=== PATIENT | female | born 1990 | race Caucasian/White ===

== ENCOUNTER 2018-08-23 22:31 | Emergency (ER) | payer SELFPAY ==
[~2018-08-23] VITALS: Ht 165.1 cm; Wt 68.0 kg
[2018-08-23 22:37] VITALS: BP 125/87
--- NOTE | 2018-08-23 22:37 | NUR ---
TO BED # 08 AMBULATORY, REPORT GIVEN TO ZACHARY TSE
[2018-08-23] MEDS ORDERED: METOCLOPRAMIDE 10 MG/2 ML INJ VIAL IVP ONE (22:45)
[2018-08-23] MEDS ORDERED: NACL 0.9% 1,000 ML IV ONE (22:45)
--- NOTE | 2018-08-23 23:00 | NUR ---
28/F PRESENTS TO ED WITH FAMILY, C/O N/V X10 FOR 2 DAYS, REPORTS UNABLE TO EAT TODAY. PT IS 8 WEEKS , A0. REPORTS 9/10 DIFFUSE ABD PAIN. AOX4, RR EVEN AND UNLABORED. LUNG SOUNDS CLEAR BL. BS ACTIVE X4, ABD SOFT ROUND MILDLY TENDER TO TOUCH. HX L NEPHRECTOMY
[2018-08-23 23:04] LABS: EOSINOPHILS # (AUTO) 0.2 K/uL (0-0.4); HEMATOCRIT 40.5 % (36-48); HEMOGLOBIN 13.4 g/dL (12.0-16.0); LYMPHOCYTES # (AUTO) 2.2 K/uL (2.5-16.5); LYMPHOCYTES % (AUTO) 23.2 % (20.5-51.1); MEAN CORPUSCULAR HEMOGLOBIN 27 pg (27-31); MEAN CORPUSCULAR HGB CONC 33 g/dL (33-37); MEAN CORPUSCULAR VOLUME 82.5 fL (80-94); MONOCYTES % (AUTO) 10.1 % (1.7-9.3); NEUTROPHILS # (AUTO) 6.3 K/uL (1.8-7.7); NEUTROPHILS % (AUTO) 64.7 % (42.2-75.2); PLATELET COUNT (AUTO) 171 K/uL (140-450); RED BLOOD CELL COUNT(AUTO) 4.91 MIL/uL (4.20-5.40); RED CELL DISTRIBUTION WIDTH 14.5 % (11.6-13.7); WHITE BLOOD COUNT (AUTO) 9.7 K/uL (4.8-10.8)
[2018-08-23 23:05] LABS: APPEARANCE,URINE CLEAR (CLEAR); BILIRUBIN,URINE NEGATIVE (NEGATIVE); BLOOD, URINE NEGATIVE (NEGATIVE); COLOR,URINE YELLOW (YELLOW); LEUKOCYTE ESTERASE ,URINE NEGATIVE (NEGATIVE); NITRITE, URINE NEGATIVE (NEGATIVE); PH,URINE 6.5 (5.0-9.0); UGLUCOSE NEGATIVE (NEGATIVE)
[2018-08-23 23:14] LABS: ANION GAP 15.9 (8-16); CARBON DIOXIDE 24.8 mmol/L (21-32); POTASSIUM 3.7 mmol/L (3.5-5.1)
[2018-08-23 23:20] LABS: ALBUMIN 3.6 g/dL (3.4-5.0); TOTAL BILIRUBIN 0.2 mg/dL (0.0-1.0)
--- NOTE | 2018-08-23 23:50 | NUR ---
Patient discharged with v/s stable. Written and verbal after care instructions given and explained. Patient alert, oriented and verbalized understanding of instructions. Ambulatory with steady gait. All questions addressed prior to discharge. ID band removed. Patient advised to follow up with PMD. Rx of REGLAN given. Patient educated on indication of medication including possible reaction and side effects. Opportunity to ask questions provided and answered.
[2018-08-23 23:51] VITALS: BP 125/87
== END 2018-08-23 23:51 | disposition home or self-care (01) ==
LOC: MED 22:31
DX: O21.9 Vomiting of pregnancy, unspecified (principal); Z3A.08 8 weeks gestation of pregnancy
CPT/HCPCS: 36415; 80053; 81003; 81025; 84702; 85025; 96361; 96374; 99283; J2765

== ENCOUNTER 2018-09-09 14:43 | Emergency (ER) | payer SELFPAY ==
[~2018-09-09] VITALS: Ht 154.9 cm; Wt 63.1 kg
[2018-09-09 15:01] VITALS: BP 116/73
--- NOTE | 2018-09-09 15:11 | NUR ---
WAIT IN LOBBY.VSS
--- NOTE | 2018-09-09 15:40 | NUR ---
PATIENT AMBULATED TO BED 10
--- NOTE | 2018-09-09 15:45 | NUR ---
28Y/F BIB SELF WITH C/O N/V/D X 5 DAYS, LEFT LOWER ABDOMINAL PAIN, PAINFUL URINATION X 3 DAYS.PT IS AAOX4, VSS, BED DOWN, LOW LOCKED, BEDRAIL UP X 1, ER AWARE AND NOTIFIED OF PT STATUS. 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
--- NOTE | 2018-09-09 16:02 | NUR ---
Patient being evaluated by physician at bedside.
[2018-09-09] MEDS ORDERED: NACL 0.9% 1,000 ML IV ONE ×2 (16:05→17:35)
[2018-09-09] MEDS ORDERED: ONDANSETRON 4 MG/2 ML VIAL IVP ONE (17:35)
[2018-09-09 18:32] LABS: ANION GAP 14.8 (8-16); CREATININE 0.8 mg/dL (0.6-1.3); POTASSIUM 3.8 mmol/L (3.5-5.1)
[2018-09-09 18:38] LABS: ALBUMIN 3.2 g/dL (3.4-5.0); TOTAL BILIRUBIN 0.3 mg/dL (0.0-1.0)
[2018-09-09 18:41] LABS: BASOPHILS % (AUTO) 0.3 % (0.0-2.0); EOSINOPHILS # (AUTO) 0.1 K/uL (0-0.4); EOSINOPHILS % (AUTO) 1.1 % (0.0-4.0); HEMOGLOBIN 13.5 g/dL (12.0-16.0); LYMPHOCYTES % (AUTO) 19.5 % (20.5-51.1); MEAN CORPUSCULAR HEMOGLOBIN 27 pg (27-31); MEAN CORPUSCULAR HGB CONC 33 g/dL (33-37); MONOCYTES # (AUTO) 0.7 K/uL (0.8-1.0); MONOCYTES % (AUTO) 7.2 % (1.7-9.3); NEUTROPHILS # (AUTO) 7.3 K/uL (1.8-7.7); NEUTROPHILS % (AUTO) 71.9 % (42.2-75.2); PLATELET COUNT (AUTO) 141 K/uL (140-450); RED BLOOD CELL COUNT(AUTO) 4.93 MIL/uL (4.20-5.40); WHITE BLOOD COUNT (AUTO) 10.1 K/uL (4.8-10.8)
[2018-09-09 19:06] VITALS: BP 112/69
--- NOTE | 2018-09-09 19:06 | NUR ---
Patient discharged with v/s stable. Written and verbal after care instructions given and explained. Patient alert, oriented and verbalized understanding of instructions. Ambulatory with steady gait. All questions addressed prior to discharge. ID band removed. Patient advised to follow up with PMD. Rx of DICLEGIS given. Patient educated on indication of medication including possible reaction and side effects. Opportunity to ask questions provided and answered.
== END 2018-09-09 19:06 | disposition home or self-care (01) ==
LOC: MED 14:43
DX: O26.891 Other specified pregnancy related conditions, first trimester (principal); O21.8 Other vomiting complicating pregnancy; E86.0 Dehydration; R19.7 Diarrhea, unspecified; Z3A.11 11 weeks gestation of pregnancy
CPT/HCPCS: 36415; 80053; 81002; 81025; 85025; 96361; 96374; 99283; J2405; J7030

== ENCOUNTER 2018-09-19 13:42 | Emergency (ER) | payer SELFPAY ==
[~2018-09-19] VITALS: Ht 152.4 cm; Wt 61.7 kg
[2018-09-19 14:00] VITALS: BP 107/73
--- NOTE | 2018-09-19 14:03 | NUR ---
URINE CUP HANDED TO PT FOR SAMPLE
--- NOTE | 2018-09-19 14:33 | NUR ---
PT BIB C/O VOMITNG X3 DAYS. PT STATES THAT SHE VOMITS EVERYTHING SHE EATS, 10 EPISODES OF EMESIS LAST 3 DAYS. REPORTS LUQ ABD PAIN ONLY WHEN VOMITING. DENIES VAGINAL BLEEDING, UTI SYMPTOMS, FEVER OR DIARRHEA. LAST BM 09/19/18. VSS. ER TO SEE PT. HX--DENIES RX-- LMP JUN 24, 2018
[2018-09-19] MEDS ORDERED: NACL 0.9% 1,000 ML IV ONE ×2 (14:38→16:30)
[2018-09-19] MEDS ORDERED: ONDANSETRON 4 MG/2 ML VIAL IVP ONE (14:40)
[2018-09-19 15:08] LABS: BASOPHILS % (AUTO) 0.2 % (0.0-2.0); EOSINOPHILS # (AUTO) 0.1 K/uL (0-0.4); EOSINOPHILS % (AUTO) 1.1 % (0.0-4.0); HEMATOCRIT 39.3 % (36-48); HEMOGLOBIN 13.2 g/dL (12.0-16.0); LYMPHOCYTES # (AUTO) 1.4 K/uL (2.5-16.5); LYMPHOCYTES % (AUTO) 16.7 % (20.5-51.1); MEAN CORPUSCULAR HEMOGLOBIN 28 pg (27-31); MEAN CORPUSCULAR HGB CONC 34 g/dL (33-37); MEAN CORPUSCULAR VOLUME 82.6 fL (80-94); MONOCYTES # (AUTO) 0.7 K/uL (0.8-1.0); MONOCYTES % (AUTO) 8.4 % (1.7-9.3); NEUTROPHILS # (AUTO) 6.3 K/uL (1.8-7.7); NEUTROPHILS % (AUTO) 73.6 % (42.2-75.2); PLATELET COUNT (AUTO) 152 K/uL (140-450); RED BLOOD CELL COUNT(AUTO) 4.75 MIL/uL (4.20-5.40); RED CELL DISTRIBUTION WIDTH 14.2 % (11.6-13.7); WHITE BLOOD COUNT (AUTO) 8.6 K/uL (4.8-10.8)
[2018-09-19 15:13] LABS: APPEARANCE,URINE SL CLOUDY (CLEAR); BILIRUBIN,URINE 1+ (NEGATIVE); BLOOD, URINE NEGATIVE (NEGATIVE); COLOR,URINE YELLOW (YELLOW); LEUKOCYTE ESTERASE ,URINE 1+ (NEGATIVE); NITRITE, URINE NEGATIVE (NEGATIVE); UGLUCOSE NEGATIVE (NEGATIVE)
[2018-09-19 15:34] LABS: ANION GAP 15.5 (8-16); CREATININE 0.9 mg/dL (0.6-1.3); POTASSIUM 3.5 mmol/L (3.5-5.1)
[2018-09-19 15:40] LABS: ALBUMIN 3.4 g/dL (3.4-5.0); TOTAL BILIRUBIN 0.3 mg/dL (0.0-1.0)
--- NOTE | 2018-09-19 15:59 | NUR ---
UNABLE TO HEAR HEART TONES, ANNA ROSAS MADE AWARE
--- NOTE | 2018-09-19 16:52 | NUR ---
PT RECIEVING 2ND BOLUS, PT TOLERATING WELL, LUNGS CLEAR, NO EDEMA, IV SITE HAS NO REDNESS. PT DENIES PAIN OR NAUSEA AT THIS TIME.
[2018-09-19 17:27] VITALS: BP 116/67
--- NOTE | 2018-09-22 10:22 | NUR ---
Late entry. Confirmed with RN that 0.9 NS 1000ml IV bolus completed at 1600.
== END 2018-09-19 17:27 | disposition home or self-care (01) ==
LOC: MED 13:42
DX: O21.0 Mild hyperemesis gravidarum (principal); Z3A.11 11 weeks gestation of pregnancy
CPT/HCPCS: 36415; 80053; 81002; 81025; 83690; 85025; 87086; 96361; 96374; 99283; J2405; J7030

== ENCOUNTER 2018-10-02 15:32 | Emergency (ER) | payer SELFPAY ==
[~2018-10-02] VITALS: Ht 154.9 cm; Wt 61.3 kg
[2018-10-02 15:44] VITALS: BP 108/68
--- NOTE | 2018-10-02 15:45 | NUR ---
PT AMB TO BED12
--- NOTE | 2018-10-02 15:46 | NUR ---
BIB BROTHER C/O N/V X YESTERDAY , RIGHT LOWER BACK THROBBING PAIN X TODAY. 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 SKIN IS PINK/WARM/DRY; AAOX4 WITH EVEN AND STEADY GAIT; PT DENIES ANY FEVER, CP, SOB, OR COUGH AT THIS TIME; PATIENT STATES PAIN OF 8/10 AT THIS TIME. PATIENT POSITIONED FOR COMFORT; HOB ELEVATED; BEDRAILS UP X2; BED DOWN. ER MD MADE AWARE OF PT STATUS.
[2018-10-02] MEDS ORDERED: NACL 0.9% 1,000 ML IV ONE ×2 (15:55→17:50)
--- NOTE | 2018-10-02 16:01 | NUR ---
PT CAN'T PROVIDE URINE AT THIS TIME.
--- NOTE | 2018-10-02 16:02 | NUR ---
LAB AT BEDSIDE
[2018-10-02] MEDS ORDERED: ONDANSETRON 4 MG/2 ML VIAL IVP ONE (16:10)
[2018-10-02] MEDS ORDERED: ACETAMINOPHEN EXTRA STRENGTH 500 MG TAB PO ONE (16:10)
[2018-10-02 16:56] LABS: ANION GAP 15.2 (8-16); CARBON DIOXIDE 23.1 mmol/L (21-32); CREATININE 0.9 mg/dL (0.6-1.3); POTASSIUM 3.3 mmol/L (3.5-5.1)
[2018-10-02 16:57] LABS: APPEARANCE,URINE SL CLOUDY (CLEAR); BILIRUBIN,URINE 1+ (NEGATIVE); BLOOD, URINE NEGATIVE (NEGATIVE); COLOR,URINE YELLOW (YELLOW); LEUKOCYTE ESTERASE ,URINE NEGATIVE (NEGATIVE); NITRITE, URINE NEGATIVE (NEGATIVE); UGLUCOSE NEGATIVE (NEGATIVE)
[2018-10-02] MEDS ORDERED: POTASSIUM CHLORIDE 10 MEQ TABER PO ONE (17:05)
--- NOTE | 2018-10-02 18:19 | NUR ---
provided food; ate 50% at this time.
--- NOTE | 2018-10-02 18:59 | NUR ---
Patient discharged with v/s stable. Written and verbal after care instructions given and explained to parent/guardian. Parent/Guardian verbalized understanding of instructions. Ambulatory with steady gait. All questions addressed prior to discharge. ID band removed. Parent/Guardian advised to follow up with PMD. Rx of diclegis given. Parent/Guardian educated on indication of medication including possible reaction and side effects. Opportunity to ask questions provided and answered.
[2018-10-02 19:00] VITALS: BP 118/78
== END 2018-10-02 18:59 | disposition home or self-care (01) ==
LOC: MED 15:32
DX: O21.9 Vomiting of pregnancy, unspecified (principal); O26.891 Other specified pregnancy related conditions, first trimester; M54.5 Low back pain; Z3A.13 13 weeks gestation of pregnancy
CPT/HCPCS: 36415; 80048; 81003; 81025; 96361; 96374; 99283; J2405; J7030

== ENCOUNTER 2019-06-04 14:10 | Emergency (ER) | payer MEDICAID, OTHER ==
[~2019-06-04] VITALS: Ht 154.9 cm; Wt 68.5 kg
[2019-06-04 14:23] VITALS: BP 118/60
--- NOTE | 2019-06-04 14:28 | NUR ---
URINE CUP HANDED TO PT FOR SAMPLE
--- NOTE | 2019-06-04 14:37 | NUR ---
PT AMBULATED TO BED 09.
--- NOTE | 2019-06-04 14:56 | NUR ---
29 Y/O F C/O PAINFUL URINATION, FEVER AT HOME OF 102.0 IN THE MORNINGS, RT FLANK PAIN 8/10 X 3 DAYS. 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 PT HAD A 2 MONTHS PRIOR, DOES NOT FEEL THE PAIN IN THE LOWER ABDOMEN IS REALTED TO THE PAIN WITH URINATION.
--- NOTE | 2019-06-04 15:08 | NUR ---
PT RESTING COMFORTABLY, SIDE RAIL X1 IN PLACE. UA SENT TO LAB, HCG NEGATIVE.
[2019-06-04 15:29] LABS: APPEARANCE,URINE CLEAR (CLEAR); BILIRUBIN,URINE NEGATIVE (NEGATIVE); BLOOD, URINE NEGATIVE (NEGATIVE); COLOR,URINE YELLOW (YELLOW); LEUKOCYTE ESTERASE ,URINE TRACE (NEGATIVE); NITRITE, URINE NEGATIVE (NEGATIVE); PH,URINE 6.5 (5.0-9.0); UGLUCOSE NEGATIVE (NEGATIVE)
[2019-06-04 15:39] LABS: RBC,URINE 0-5 /HPF (0-5); WBC,URINE 16-25 (MOD) /HPF (0-5)
[2019-06-04] MEDS ORDERED: cefTRIAXone 500 MG in LIDOCAINE MPF 1% 1 ML IM ONE (15:50)
[2019-06-04] MEDS ORDERED: LIDOCAINE MPF 1% 0 ML ONE (16:04)
[2019-06-04] MEDS ORDERED: cefTRIAXone 500 MG VIAL ONE (16:04)
--- NOTE | 2019-06-04 16:28 | NUR ---
INSERTED IV RT AC 20 GUAGE AND BEGAN ROCEPHIN IV TREATMENT. PT TOLERATING WELL, POSITIONED FOR COMFORT.
--- NOTE | 2019-06-04 16:37 | NUR ---
PT IV ASSESSED, NO REDNESS, CLEAN DRY. IV ROCEPHIN RUNNING WITHOUT ADVERSE AFFECTS. PT GIVEN WATER, BLANKET. RESTING COMFORTABLY
[2019-06-04 16:54] VITALS: BP 115/65
--- NOTE | 2019-06-04 16:54 | NUR ---
Patient discharged with v/s stable. Written and verbal after care instructions given and explained. Patient alert, oriented and verbalized understanding of instructions. Ambulatory with steady gait. All questions addressed prior to discharge. ID band removed. Patient advised to follow up with PMD. Rx of PYRIDIUM, KELFEX given. Patient educated on indication of medication including possible reaction and side effects. Opportunity to ask questions provided and answered.
== END 2019-06-04 16:54 | disposition home or self-care (01) ==
LOC: MED 14:10
DX: N39.0 Urinary tract infection, site not specified (principal); Z98.890 Other specified postprocedural states
CPT/HCPCS: 81001; 81025; 96365; 96372; 99283; J0696; J2001

== ENCOUNTER 2019-07-31 15:07 | Emergency (ER) | payer OTHER ==
[~2019-07-31] VITALS: Ht 154.9 cm; Wt 68.3 kg
[2019-07-31 15:15] VITALS: BP 112/67
--- NOTE | 2019-07-31 15:26 | NUR ---
PT AMBULATED TO BED 11
--- NOTE | 2019-07-31 15:27 | NUR ---
PT ABLE TO GIVE URINE SAMPLE AT THIS TIME
--- NOTE | 2019-07-31 15:38 | NUR ---
CC: RIGHT FLANK PAIN X 2 WEEKS 01/08 DESCRIBED PULSATING AND IS INTERMITTENT ALSO WITH BL PELVIC PAIN X 2 WEEKS -N/V +DYSURIA, + VAGINAL ORANGE D/C, +PERINEAL PRURITUS +FEVER SINCE THIS AM 100.5. TOOK TYLENOL @ 8AM AT HOME. AFEBRILE AT TRIAGE. PT NAD. PMH: KIDNEY DONOR (DONATED L KIDNEY) MEDS: NONE NKA
--- NOTE | 2019-07-31 16:01 | NUR ---
PT TO CT SCAN VIA W/C
[2019-07-31 16:09] LABS: BASOPHILS % (AUTO) 0.1 % (0.0-2.0); EOSINOPHILS # (AUTO) 0.4 K/uL (0-0.4); EOSINOPHILS % (AUTO) 5.5 % (0.0-4.0); HEMATOCRIT 37.5 % (36-48); HEMOGLOBIN 12.7 g/dL (12.0-16.0); LYMPHOCYTES # (AUTO) 2.5 K/uL (2.5-16.5); LYMPHOCYTES % (AUTO) 32.6 % (20.5-51.1); MEAN CORPUSCULAR HEMOGLOBIN 27 pg (27-31); MEAN CORPUSCULAR HGB CONC 34 g/dL (33-37); MEAN CORPUSCULAR VOLUME 79.1 fL (80-94); MONOCYTES # (AUTO) 0.6 K/uL (0.8-1.0); MONOCYTES % (AUTO) 8.5 % (1.7-9.3); NEUTROPHILS % (AUTO) 53.3 % (42.2-75.2); PLATELET COUNT (AUTO) 183 K/uL (140-450); RED BLOOD CELL COUNT(AUTO) 4.75 MIL/uL (4.20-5.40); RED CELL DISTRIBUTION WIDTH 14.8 % (11.6-13.7); WHITE BLOOD COUNT (AUTO) 7.6 K/uL (4.8-10.8)
--- NOTE | 2019-07-31 16:14 | NUR ---
PT BACK TO BED 11 VIA W/C FROM CT SCAN
[2019-07-31 16:39] LABS: APPEARANCE,URINE SL CLOUDY (CLEAR); BILIRUBIN,URINE NEGATIVE (NEGATIVE); BLOOD, URINE NEGATIVE (NEGATIVE); COLOR,URINE ORANGE (YELLOW); LEUKOCYTE ESTERASE ,URINE NEGATIVE (NEGATIVE); NITRITE, URINE NEGATIVE (NEGATIVE); UGLUCOSE NEGATIVE (NEGATIVE)
[2019-07-31 16:41] LABS: ALBUMIN 3.6 g/dL (3.4-5.0); ANION GAP 10.6 (8-16); CARBON DIOXIDE 29.7 mmol/L (21-32); POTASSIUM 3.3 mmol/L (3.5-5.1); TOTAL BILIRUBIN 0.2 mg/dL (0.0-1.0)
[2019-07-31 17:49] VITALS: BP 108/66
--- NOTE | 2019-07-31 17:49 | NUR ---
Patient discharged with v/s stable. Written and verbal after care instructions given and explained. Patient alert, oriented and verbalized understanding of instructions. Ambulatory with steady gait. All questions addressed prior to discharge. ID band removed. Patient advised to follow up with PMD. Rx of MIRALAX, DIFLUCAN, MINERAL OIL given. Patient educated on indication of medication including possible reaction and side effects. Opportunity to ask questions provided and answered.
== END 2019-07-31 17:49 | disposition home or self-care (01) ==
LOC: MED 15:07
DX: K59.00 Constipation, unspecified (principal); N76.0 Acute vaginitis; Q60.0 Renal agenesis, unilateral
CPT/HCPCS: 36415; 80053; 81003; 81025; 85025; 87070; 87086; 87205; 87210; 99284

== ENCOUNTER 2020-06-20 16:39 | Emergency (ER) | payer OTHER ==
[~2020-06-20] VITALS: Ht 154.9 cm; Wt 70.3 kg
[2020-06-20 16:56] VITALS: BP 118/75
--- NOTE | 2020-06-20 18:18 | NUR ---
UA GIVEN TO TUB TENDER
[2020-06-20 18:25] LABS: APPEARANCE,URINE SL CLOUDY (CLEAR); BILIRUBIN,URINE NEGATIVE (NEGATIVE); BLOOD, URINE NEGATIVE (NEGATIVE); COLOR,URINE YELLOW (YELLOW); LEUKOCYTE ESTERASE ,URINE 1+ (NEGATIVE); NITRITE, URINE NEGATIVE (NEGATIVE); UGLUCOSE NEGATIVE (NEGATIVE)
[2020-06-20 19:08] LABS: RBC,URINE NONE SEEN /HPF (0-5)
[2020-06-20] MEDS ORDERED: ONDANSETRON 4 MG ODT PO ONE (19:20)
[2020-06-20] MEDS ORDERED: ACETAMINOPHEN 325 MG TAB PO ONE (19:20)
[2020-06-20 19:21] LABS: BASOPHILS # (AUTO) 0.1 K/uL (0.00-0.22); BASOPHILS % (AUTO) 0.7 % (0.0-2.0); EOSINOPHILS # (AUTO) 0.3 K/uL (0-0.4); EOSINOPHILS % (AUTO) 2.2 % (0.0-4.0); HEMATOCRIT 38.8 % (36-48); HEMOGLOBIN 12.6 g/dL (12.0-16.0); LYMPHOCYTES # (AUTO) 2.3 K/uL (2.5-16.5); LYMPHOCYTES % (AUTO) 19.5 % (20.5-51.1); MEAN CORPUSCULAR HEMOGLOBIN 27 pg (27-31); MEAN CORPUSCULAR HGB CONC 33 g/dL (33-37); MONOCYTES # (AUTO) 0.8 K/uL (0.8-1.0); MONOCYTES % (AUTO) 6.5 % (1.7-9.3); NEUTROPHILS # (AUTO) 8.4 K/uL (1.8-7.7); NEUTROPHILS % (AUTO) 71.1 % (42.2-75.2); PLATELET COUNT (AUTO) 197 K/uL (140-450); RED BLOOD CELL COUNT(AUTO) 4.73 MIL/uL (4.20-5.40); RED CELL DISTRIBUTION WIDTH 14.8 % (11.6-13.7); WHITE BLOOD COUNT (AUTO) 11.9 K/uL (4.8-10.8)
--- NOTE | 2020-06-20 19:40 | NUR ---
MEDICATED PER ERMDS ORDER, TOLERATED WELL.
[2020-06-20 21:19] VITALS: BP 118/75
--- NOTE | 2020-06-20 21:20 | NUR ---
Patient discharged with v/s stable. Written and verbal after care instructions given and explained. Patient alert, oriented and verbalized understanding of instructions. Ambulatory with steady gait. All questions addressed prior to discharge. ID band removed. Patient advised to follow up with PMD. Rx of KEFLEX AND ZOFRAN given. Patient educated on indication of medication including possible reaction and side effects. Opportunity to ask questions provided and answered.
== END 2020-06-20 21:20 | disposition home or self-care (01) ==
LOC: MED 16:39
DX: O23.41 Unspecified infection of urinary tract in pregnancy, first trimester (principal); O21.8 Other vomiting complicating pregnancy; Z3A.10 10 weeks gestation of pregnancy
CPT/HCPCS: 36415; 76817; 81001; 81025; 84702; 85025; 86900; 86901; 87086; 99284; Q0162

== ENCOUNTER 2020-09-05 22:38 | Emergency (ER) | payer OTHER ==
--- NOTE | 2020-09-05 23:07 | NUR ---
PATIENT LEFT WITHOUT BEING SEEN BY DR. COFFMAN. NO FURTHER CARE PROVIDED FOR PATIENT.
--- NOTE | 2020-09-05 23:07 | NUR ---
PATIENT CALLED TO BE TRIAGE NO RESPONSE
--- NOTE | 2020-09-05 23:12 | NUR ---
CALLED FOR THE SECOND TIME , NO RESPONSE
--- NOTE | 2020-09-05 23:17 | NUR ---
CALLED FOR THE THIRD TIME , NO RESPONSE
== END 2020-09-05 23:07 | disposition left against medical advice (07) ==
LOC: MED 22:38
DX: O26.892 Other specified pregnancy related conditions, second trimester (principal); R10.9 Unspecified abdominal pain; Z53.21 Procedure and treatment not carried out due to patient leaving prior to being seen by health care provider; Z3A.17 17 weeks gestation of pregnancy

== ENCOUNTER 2022-05-10 23:28 | Emergency (ER) | payer OTHER ==
[~2022-05-10] VITALS: Ht 154.9 cm; Wt 70.8 kg
[2022-05-10 23:45] VITALS: BP 109/75
--- NOTE | 2022-05-10 23:48 | NUR ---
TO LOBBY A/W BED AMBULATORY
[2022-05-11] MEDS ORDERED: LIDOCAINE 5% 1 EA PATCH TP ONE (00:15)
--- NOTE | 2022-05-11 02:02 | NUR ---
PT TAKEN TO BED 2
[2022-05-11] MEDS ORDERED: ACETAMINOPHEN 325 MG TAB PO ONE (02:20)
[2022-05-11] MEDS ORDERED: KETOROLAC 15 MG/ML VIAL IM ONE (02:20)
[2022-05-11 02:33] LABS: BASOPHILS % (AUTO) 0.1 % (0.0-2.0); EOSINOPHILS # (AUTO) 0.2 K/uL (0-0.4); EOSINOPHILS % (AUTO) 2.1 % (0.0-4.0); HEMATOCRIT 35.2 % (36-48); HEMOGLOBIN 11.2 g/dL (12.0-16.0); LYMPHOCYTES # (AUTO) 3.4 K/uL (2.5-16.5); LYMPHOCYTES % (AUTO) 33.5 % (20.5-51.1); MEAN CORPUSCULAR HEMOGLOBIN 25 pg (27-31); MEAN CORPUSCULAR HGB CONC 32 g/dL (33-37); MEAN CORPUSCULAR VOLUME 78.9 fL (80-94); MONOCYTES # (AUTO) 0.8 K/uL (0.8-1.0); MONOCYTES % (AUTO) 8.4 % (1.7-9.3); NEUTROPHILS # (AUTO) 5.6 K/uL (1.8-7.7); NEUTROPHILS % (AUTO) 55.9 % (42.2-75.2); PLATELET COUNT (AUTO) 166 K/uL (140-450); RED BLOOD CELL COUNT(AUTO) 4.46 MIL/uL (4.20-5.40); RED CELL DISTRIBUTION WIDTH 15.3 % (11.6-13.7)
[2022-05-11 02:57] LABS: ALBUMIN 3.1 g/dL (3.4-5.0); ANION GAP 11.6 (8-16); ASPARTATE AMINOTRANSFERASE 21 U/L (15-37); CARBON DIOXIDE 26.6 mmol/L (21-32); CHLORIDE 106 mmol/L (98-107); CREATININE 0.9 mg/dL (0.6-1.3); GFR ARICAN-AMERICAN 93 mL/min (>90); GLUCOSE 98 mg/dL (74-106); POTASSIUM 3.2 mmol/L (3.5-5.1); SODIUM SERUM 141 mmol/L (136-145); TOTAL BILIRUBIN 0.2 mg/dL (0.0-1.0); UREA NITROGEN, BLOOD 17 mg/dL (7-18)
--- NOTE | 2022-05-11 03:06 | NUR ---
SWABS COLLECTED AND HANDED TO LAB
--- NOTE | 2022-05-11 03:07 | NUR ---
PATIETN MEDICATED PER ORDERS, TOLERATED WELL
--- NOTE | 2022-05-11 03:11 | NUR ---
SWAB COLLECTED AND HANDED TO LAB
--- NOTE | 2022-05-11 03:31 | NUR ---
PATIENT SITTING UP IN BED. VSS. DOESNT APPEAR TO BE IN DISTRESS. BED LOW AND LOCKED. SIDE RAILS UP X1 FOR SAFETY. CALL LIGHT IN REACH. ALL NEEDS MET.
[2022-05-11 03:50] VITALS: BP 111/67
[2022-05-11] MEDS ORDERED: ALBU0.0912 IH (04:05)
[2022-05-11] MEDS ORDERED: LID5T TP (04:05)
[2022-05-11] MEDS ORDERED: BENZ200C4 PO (04:05)
[2022-05-11] MEDS ORDERED: DICL100G5 TP (04:05)
--- NOTE | 2022-05-11 04:17 | NUR ---
Written and verbal after care instructions given and explained. Patient alert, oriented and verbalized understanding of instructions. Ambulatory with steady gait. All questions addressed prior to discharge. ID band removed. Patient advised to follow up with PMD. Rx of ALBUTEROL, BENZONATE, DICLOFENAC AND LIDOCAINE given. Patient educated on indication of medication including possible reaction and side effects. Opportunity to ask questions provided and answered.
== END 2022-05-11 04:17 | disposition home or self-care (01) ==
LOC: MED 23:28
DX: J06.9 Acute upper respiratory infection, unspecified (principal); Z20.822 Contact with and (suspected) exposure to COVID-19; R07.9 Chest pain, unspecified
CPT/HCPCS: 36415; 71045; 80053; 81025; 84484; 85025; 87426; 93005; 96372; 99285; J1885